=== PATIENT | male | born 1955 | race Caucasian/White ===

== ENCOUNTER → 2020-03-09 | Outpatient (CLI) | payer MEDICARE, OTHER ==
[~2020-03-09] MED LIST: AMITIZA PO; CARI350 PO; CEPH500 PO; DIAZ5 PO; DOCSEN PO; FENT25TP TOP; FENT75TP TOP; GABA300 PO; HYDACE5 PO; NAPR500 PO; Norco 5-325 Ta1 EACH PO; OMEP10ER PO; OXYACE5T PO; OXYC10ER PO; OXYC5 PO; PREG100 PO; TRAZ100 PO; TRAZ50; ZOLP10 PO
== END | disposition home or self-care (01) ==
LOC: PLD 10:59 → LAB SHORT 10:59
DX: L82.1 Other seborrheic keratosis (principal)
CPT/HCPCS: 88305

== ENCOUNTER → 2021-02-14 | Outpatient (CLI) | payer MEDICARE, OTHER | END | disposition home or self-care (01) | LOC: LAB 11:26 → LAB SHORT 11:26 | DX: D48.5 Neoplasm of uncertain behavior of skin (principal) | CPT/HCPCS: 88305 ==

== ENCOUNTER → 2022-08-29 | Outpatient (CLI) | payer MEDICARE, OTHER | END | disposition home or self-care (01) | LOC: LAB SHORT 10:44 → PLD 10:44 | DX: D48.5 Neoplasm of uncertain behavior of skin (principal) | CPT/HCPCS: 88304; 88305 ==

== ENCOUNTER → 2023-02-08 | Outpatient (CLI) | payer MEDICARE, OTHER | LOC: PLD 12:25 → LAB SHORT 12:25 | DX: D48.5 Neoplasm of uncertain behavior of skin (principal) | CPT/HCPCS: 88305 ==

== ENCOUNTER → 2023-03-21 | Outpatient (CLI) | payer MEDICARE, OTHER | LOC: LAB 15:45 → LAB SHORT 15:45 → PLD 15:45 | DX: D48.5 Neoplasm of uncertain behavior of skin (principal) | CPT/HCPCS: 88305 ==